=== PATIENT | male | born 1960 | race Caucasian/White ===

== ENCOUNTER 2020-02-08 18:56 | Emergency (ER) | payer OTHER ==
[~2020-02-08] VITALS: Ht 172.7 cm; Wt 113.6 kg
[2020-02-08] MEDS ORDERED: labetalol 100mg tablet PO ONE (19:20)
[2020-02-08] MEDS ORDERED: amLODIPine 5mg tablet PO ONE (19:20)
[2020-02-08 19:51] LABS: BASOPHILS # (AUTO) 0.1 X10'3 (0-0.2); EOSINOPHILS # (AUTO) 0.1 X10'3 (0-0.9); EOSINOPHILS % (AUTO) 1.1 % (0-6); HEMATOCRIT 43.9 % (42.0-52.0); HEMOGLOBIN 15.5 g/dl (14.0-17.9); LYMPHOCYTES # (AUTO) 2.4 X10'3 (1.1-4.8); LYMPHOCYTES % (AUTO) 26.1 % (21-51); MEAN CORPUSCULAR HEMOGLOBIN 32.4 PG (27.0-31.0); MEAN CORPUSCULAR HGB CONC 35.2 g/dL (33.0-36.5); MEAN CORPUSCULAR VOLUME 91.8 FL (78-98); MEAN PLATELET VOLUME 8.5 FL (7.4-10.4); MONOCYTES # (AUTO) 0.8 X10'3 (0-0.9); MONOCYTES % (AUTO) 8.5 % (2-12); NEUTROPHILS # (AUTO) 5.9 X10'3 (1.8-7.7); NEUTROPHILS % (AUTO) 63.3 % (42-75); PLATELET COUNT 206 X10'3 (140-440); RED BLOOD COUNT 4.78 X10'6 (4.70-6.10); RED CELL DISTRIBUTION WIDTH 14.7 % (11.5-14.5); WHITE BLOOD COUNT 9.3 X10'3 (4.5-11.0)
[2020-02-08 20:11] LABS: ASPARTATE AMINO TRANSFERASE 4 U/L (10-37)
[2020-02-08 20:28] LABS: ALANINE AMINOTRANSFERASE 22 U/L (12-78); ALBUMIN 3.2 G/DL (3.4-5.0); ALBUMIN/GLOBULIN RATIO 0.8 (1.1-1.5); ALKALINE PHOSPHATASE 173 IU/L (46-116); ANION GAP 6 (8-16); BILIRUBIN,TOTAL 0.4 MG/DL (0.1-1.0); BLOOD UREA NITROGEN 19 MG/DL (7-18); BUN/CREATININE RATIO 15.7 (5.4-32.0); CALCIUM 8.8 MG/DL (8.5-10.1); CHLORIDE 105 MMOL/L (99-107); CREATININE 1.21 MG/DL (0.60-1.10); GLUCOSE 414 MG/DL (70-104); POTASSIUM 3.9 MMOL/L (3.5-5.1); SODIUM 140 MMOL/L (135-145); TOTAL PROTEIN 7.2 G/DL (6.4-8.2); eGFR 62 ML/MIN
[2020-02-08] MEDS ORDERED: insulin regular, human 10 units/0.1 ml syringe IV ONE (20:45)
[2020-02-08] MEDS ORDERED: azithromycin/NS 500mg/250ml 250 ML IV ONE (20:45)
[2020-02-08] MEDS ORDERED: normal saline 1000ml 1,000 ML IV ONE (20:45)
[2020-02-08] MEDS ORDERED: insulin regular, human U-100 3ml vial - multi-dose IV ONE (20:45)
[2020-02-08] MEDS ORDERED: LISI40TA4 PO (21:35)
[2020-02-08] MEDS ORDERED: AMLO10TA53 PO (21:35)
[2020-02-08] MEDS ORDERED: METF500T PO (21:35)
[2020-02-08] MEDS ORDERED: AZIT-63 PO (21:35)
[2020-02-08 23:16] VITALS: BP 165/98
== END 2020-02-08 23:18 | disposition home or self-care (01) ==
LOC: ER 18:57
DX: I10 Essential (primary) hypertension (principal); R05 Cough; R06.02 Shortness of breath; J44.9 Chronic obstructive pulmonary disease, unspecified; E11.42 Type 2 diabetes mellitus with diabetic polyneuropathy; Z91.14 Patient's other noncompliance with medication regimen; Z86.73 Personal history of transient ischemic attack (TIA), and cerebral infarction without residual deficits; Z79.899 Other long term (current) drug therapy
CPT/HCPCS: 36415; 71045; 80053; 82948; 84145; 84484; 85025; 96365; 96375; 99284; J0456; J7030; J1815